=== PATIENT | male | born 2000 | race African-American/Black ===

== ENCOUNTER 2022-11-23 21:18 | Emergency (ER) | payer OTHER | END 2022-11-23 22:45 | disposition home or self-care (01) | LOC: CSHERS 21:18 | DX: S86.011A Strain of right Achilles tendon, initial encounter (principal); X50.1XXA Overexertion from prolonged static or awkward postures, initial encounter ==

== ENCOUNTER 2023-02-28 16:51 | Emergency (ER) | payer OTHER | END 2023-02-28 18:20 | disposition home or self-care (01) | LOC: CSHERS 16:51 | DX: S93.401A Sprain of unspecified ligament of right ankle, initial encounter (principal); X58.XXXA Exposure to other specified factors, initial encounter | CPT/HCPCS: 99283 ==

== ENCOUNTER 2023-05-02 14:53 | Emergency (ER) | payer OTHER ==
[2023-05-02 22:25] LABS: Chlam.trachomatis by PCR,Urine Not Detected (NotDetected); GC N.gonorrhoeae PCR,UrineVOID Not Detected (NotDetected)
== END 2023-05-02 15:26 | disposition home or self-care (01) ==
LOC: CSHERS 14:53
DX: Z20.2 Contact with and (suspected) exposure to infections with a predominantly sexual mode of transmission (principal)
CPT/HCPCS: 87491; 87591; 99283